=== PATIENT | female | born 1985 | race Two or more races ===

== ENCOUNTER 2023-09-24 16:05 | Emergency (ER) | payer MEDICAID ==
[~2023-09-24] VITALS: Ht 170.2 cm; Wt 125.0 kg
[2023-09-24 16:33] LABS: Basophils # (auto) 0 10 ^3/uL (0-0.2); Basophils % (auto) 0.3 % (0.0-2.0); Eosinophils # (auto) 0.1 10 ^3/uL (0-0.8); Eosinophils % (auto) 1.1 % (0.0-7.0); Hemoglobin 14.7 g/dL (12.2-16.2); Lymphocytes # (auto) 3.6 10 ^3/uL (0.4-5.4); Mean Corpuscular Hemoglobin 28.6 pg (28.0-32.0); Mean Corpuscular Hgb Conc. 33.5 g/dL (32.0-36.0); Mean Corpuscular Volume 85.5 fL (80.0-100.0); Monocytes # (auto) 0.6 10 ^3/uL (0-1.3); Monocytes % (auto) 5.1 % (0.0-12.0); Neutrophils # (auto) 6.4 10 ^3/uL (1.6-8.6); Neutrophils % (auto) 59.5 % (37.0-80.0); Nucleated Red Blood Cells % 0.1 %; Red Blood Cells 5.14 10^6/uL (4.0-5.20); Red Cell Distribution Width 14.2 % (11.8-14.3); White Blood Cell 10.7 10^3/uL (4.4-10.8)
[2023-09-24 16:51] LABS: Alanine Aminotransferase 36 U/L (7-40); Albumin 4.5 g/dL (3.2-4.8); Alkaline Phosphatase 110 U/L (46-116); Anion Gap 6 (5-15); Aspartate Aminotransferase 21 U/L (13-40); BUN/Creatinine Ratio 16.5 (10.0-20.0); Bilirubin, Total 0.6 mg/dL (0.2-1.0); Blood Urea Nitrogen 15 mg/dL (9-23); Calcium 9.4 mg/dL (8.5-10.1); Carbon Dioxide 27 mmol/L (20-30); Chloride 108 mmol/L (98-107); Glucose 80 mg/dL (74-106); Potassium 3.8 mmol/L (3.5-5.1); Sodium 141 mmol/L (136-145)
[2023-09-24] MEDS: ASPirin 81 mg TAB PO ONE (18:05)
[2023-09-24] MEDS: SODIUM CHLORIDE 0.9% 1,000 ML IV ONE (18:06)
[2023-09-24 19:47] VITALS: O2SAT 99
[2023-09-24] MEDS ORDERED: ACETAMINOPHEN 325 MG TAB PO PRN (21:15)
[2023-09-24] MEDS ORDERED: TEMAZEPAM 15 MG CAP PO PRN (21:15)
[2023-09-24] MEDS ORDERED: DEXTROSE (50%) 50ML SYRG IV PRN (21:15)
[2023-09-24] MEDS ORDERED: ONDANSETRON HCL 4 MG/2 ML VIAL IV PRN (21:15)
[2023-09-24 22:00] VITALS: BP 110/78; PULSE 76; RESP 18; TEMP 97.6
[2023-09-24] MEDS: IOHEXOL 350 MG/ML 100ML IJ ONE (23:12)
[2023-09-24] MEDS: ACCU-CHEK COMFORT CURVE STRIP VI SCH (23:18)
[2023-09-24] MEDS: InsuLIN REG 1unit/0.01ml Soln (100units/ml) SC SCH (23:18)
[2023-09-24] MEDS: ATORVASTATIN 20 MG TAB PO SCH (23:30)
[2023-09-24 23:31] LABS: Urine Bacteria None Seen /hpf (None Seen)
[2023-09-24 23:44] LABS: Urine Blood Negative /uL (Negative); Urine Clarity Turbid (Clear); Urine Color Colorless (Yellow); Urine Protein, UAD Negative (Negative); Urine Specific Gravity 1.039 (1.001-1.035); Urine Urobilinogen Normal (Negative); Urine WBC 2 /hpf (0 - 5); Urine pH 6.5 (5.0-9.0)
[2023-09-25] MEDS ORDERED: ASPirin 81 mg TAB PO SCH (10:00)
== END 2023-09-24 23:34 | disposition left against medical advice (07) ==
LOC: ER 16:05
DX: R07.89 Other chest pain (principal); R10.2 Pelvic and perineal pain; R79.89 Other specified abnormal findings of blood chemistry; E08.9 Diabetes mellitus due to underlying condition without complications; E66.9 Obesity, unspecified; K21.9 Gastro-esophageal reflux disease without esophagitis; F15.90 Other stimulant use, unspecified, uncomplicated; Z68.35 Body mass index [BMI] 35.0-35.9, adult; Z86.73 Personal history of transient ischemic attack (TIA), and cerebral infarction without residual deficits; Z98.890 Other specified postprocedural states
CPT/HCPCS: 36415; 71046; 71275; 80053; 81001; 82962; 83735; 84443; 84484; 84702; 85025; 85379; 93005; 96360; 96361; 99285; J7030; Q9967